=== PATIENT | female | born 1955 | race Caucasian/White ===

== ENCOUNTER 2018-08-17 17:48 | Emergency (ER) | payer SELFPAY ==
[2018-08-17 17:59] VITALS: BP 153/72
--- NOTE | 2018-08-17 18:57 | ED Physician Documentation ---
PD HPI LOWER EXT INJURY - Stated complaint Stated Complaint: LT ANKLE INJ - Chief complaint Chief Complaint: Trauma Ext - History obtained from History obtained from: Patient - History of Present Illness PD HPI LOW EXT INJURY LOCATION: Left (Trip and fall injuring her ankle at home just prior to arrival with a twisting motion. She was initially able to walk and bear weight but now is unable.) Review of Systems Constitutional: reports: Reviewed and negative Nose: reports: Reviewed and negative Throat: reports: Reviewed and negative PD PAST MEDICAL HISTORY - Allergies Allergies/Adverse Reactions: Allergies Allergy/AdvReac Type Severity Reaction Status Date / Time Penicillins Allergy Anaphylaxis Verified 08/17/18 17:56 PD ED PE NORMAL - Vitals Vital signs reviewed: Yes - General General: Alert and oriented X 3, No acute distress - Neck Neck: Supple, no meningeal sign, No bony TTP - Extremities Extremities: Other (Ecchymosis and tenderness over the lateral malleolus welling without medial malleolar or proximal fibular tenderness of the left ankle.) - Neuro Neuro: Alert and oriented X 3, Normal speech Results - Vitals Vitals: Vital Signs - 24 hr 08/17/18 17:54 Temperature 37.1 C Heart Rate 75 Respiratory 18 Rate Blood Pressure 153/72 H O2 Saturation 100 Oxygen O2 Source Room air - Rads (name of study) 3v L ankle Radiology: EMP read contemporaneously (STS no frx) Departure - Departure Disposition: 01 Home, Self Care Clinical Impression: Left ankle sprain Qualifiers: Encounter type: initial encounter Involved ligament of ankle: deltoid ligament Qualified Code(s): S93.422A - Sprain of deltoid ligament of left ankle, initial encounter Condition: Good Record reviewed to determine appropriate education?: Yes Instructions: ED Sprain Ankle W X Ray Comments: Recheck with your doctor in a week if not better, return for new worsening symptoms. You may walk and bear weight as tolerated. Tylenol as needed for pain. Elevate as much as possible.
--- NOTE | 2018-08-17 19:06 | XRAY Report ---
Reason: twisted ankle Procedure Date: 08/17/2018 Accession Number: [id number] / [id number] Procedure: XR - Ankle 3 View LT CPT Code: FULL RESULT: EXAM: LEFT ANKLE RADIOGRAPHY EXAM DATE: 08/17/2018 06:25 PM. CLINICAL HISTORY: Twisted ankle. COMPARISON: None. TECHNIQUE: 3 views. FINDINGS: Bones: No acute fracture. Previous surgery of the first metatarsal. There is a corticated ossification inferior to the medial malleolus which appears chronic. Joints: Joint space and alignment is preserved. Soft Tissues: There is lateral ankle soft tissue swelling. IMPRESSION: Soft tissue swelling without acute fracture. RADIA
== END 2018-08-17 19:28 | disposition home or self-care (01) ==
LOC: ED 17:48
DX: S93.422A Sprain of deltoid ligament of left ankle, initial encounter (principal); X50.1XXA Overexertion from prolonged static or awkward postures, initial encounter
CPT/HCPCS: 99282; 99283

== ENCOUNTER 2020-09-20 19:24 | Emergency (ER) | payer MEDICARE, OTHER ==
[2020-09-20] MEDS ORDERED: SODIUM CHLORIDE 0.9% 1,000 ML IV STA (19:45)
[2020-09-20] MEDS ORDERED: ONDANSETRON 4 MG/2 ML VIAL IVP STA (19:59)
--- OUTSIDE RECORDS SUMMARY | 2020-09-20 20:06 | EXTERNAL MEDICAL SUMMARY RPT | Continuity of Care Document ---
:1955 Demographics Phone Unavailable Preferred Language Unknown Marital Status Unknown Jainism Affiliation Unknown Race Unknown Ethnic Group Unknown Author Organization [facility] Address [address] [phone] Phone Allergies Encounters Medications Problems Results
--- NOTE | 2020-09-20 20:08 | ED Physician Documentation ---
History of Present Illness - Stated complaint Stated Complaint: CRAMPING/CHILLS - Chief complaint Chief Complaint: Abd Pain - Additonal information Additional information: 65-year-old female presents emergency department for evaluation of acute onset periumbilical pain with nausea associated chills and rigors. No vomiting no diarrhea. She was reports ported Darius feeling well until just a few hours ago. 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 She was seen at [facility] and underwent a thrombectomy. She was ultimately found to have an ASD which was repaired in September 2019. She takes a daily aspirin only at this time and has no other medications prescribed for her. She denies any history of hypertension or diabetes. She is not a smoker. She has never had a colonoscopy but screened negative for colon cancer using the stool test. Review of Systems Constitutional: reports: Chills, Myalgias. denies: Fever Eyes: reports: Reviewed and negative Ears: reports: Reviewed and negative Nose: reports: Reviewed and negative Throat: reports: Reviewed and negative Cardiac: reports: Reviewed and negative Respiratory: denies: Dyspnea, Cough GI: reports: Abdominal Pain, Nausea. denies: Vomiting, Constipation, Diarrhea, Hematemesis : denies: Dysuria, Frequency, Hesitancy, Hematuria Skin: denies: Rash, Lesions PD PAST MEDICAL HISTORY - Present Medications Home Medications: Ambulatory Orders Medication Instructions Recorded Confirmed Ondansetron Odt [Zofran] 4 mg TL Q6H PRN #10 tablet 09/20/20 - Allergies Allergies/Adverse Reactions: Allergies Allergy/AdvReac Type Severity Reaction Status Date / Time Penicillins Allergy Anaphylaxis Verified 08/17/18 17:56 Sulfa (Sulfonamide Allergy Rash Verified 09/20/20 19:34 Antibiotics) - Social History Does the pt smoke?: No Smoking Status: Never smoker Does the pt drink ETOH?: No Does the pt have substance abuse?: No - Immunizations Immunizations are current?: Yes - POLST Patient has POLST: No PD ED PE EXPANDED - General General: Alert, In Pain - Cardiac Cardiac: Regular Rate, Radial strong equal, Cap refill < 2 sec. No: Murmur Present - Respiratory Respiratory: Clear to ausultation diana. No: Distress, Labored - Abdomen Abdomen: Normal Bowel sounds, Tender to palpation, LUQ, Periumbilical (Generalized periumbilical and left lower quadrant tenderness to palpation without guarding or rebound. Nonperitoneal exam.), LLQ - Derm Derm: Normal color, Warm and dry. No: Rash - Neuro Neuro: Alert and Oriented X 3, CNII-XII intact, Normal gait, Normal finger nose, Normal speech - GCS Eye Opening: Spontaneous Motor: Obeys Commands Verbal: Oriented Total: 15 Results - Vitals Vitals: Vital Signs - 24 hr 09/20/20 09/20/20 09/20/20 19:29 19:33 21:33 Temperature 36.5 C 36.5 C 36.9 C Heart Rate 94 94 83 Respiratory 16 16 16 Rate Blood Pressure 123/63 123/63 140/80 H O2 Saturation 97 97 99 Oxygen O2 Source Room air - Labs Labs: Laboratory Tests 09/20/20 09/20/20 09/20/20 20:15 20:15 20:15 WBC 12.5 H RBC 4.68 Hgb 14.3 Hct 43.2 MCV 92.3 MCH 30.6 MCHC 33.1 RDW 13.4 Plt Count 291 MPV 10.2 Neut # (Auto) 10.7 H Lymph # (Auto) 1.2 L [place] # (Auto) 0.5 Eos # (Auto) 0.1 Baso # (Auto) 0.1 Absolute Nucleated RBC 0.00 Nucleated RBC % 0.0 Sodium 142 Potassium 3.6 Chloride 103 Carbon Dioxide 27 Anion Gap 12.0 BUN 20 Creatinine 0.8 Estimated GFR (MDRD) 72 L Glucose 129 H Lactic Acid 1.2 Calcium 9.8 Total Bilirubin 0.8 AST 30 ALT 24 Alkaline Phosphatase 63 Total Protein 7.3 Albumin 4.8 Globulin 2.5 Albumin/Globulin Ratio 1.9 Lipase 29 Urine Color Urine Clarity Urine pH Ur Specific Silt Urine Protein Urine Glucose (UA) Urine Ketones Urine Occult Blood Urine Nitrite Urine Bilirubin Urine Urobilinogen Ur Leukocyte Esterase Ur Microscopic Review Urine Culture Comments 09/20/20 22:05 WBC RBC Hgb Hct MCV MCH MCHC RDW Plt Count MPV Neut # (Auto) Lymph # (Auto) [place] # (Auto) Eos # (Auto) Baso # (Auto) Absolute Nucleated RBC Nucleated RBC % Sodium Potassium Chloride Carbon Dioxide Anion Gap BUN Creatinine Estimated GFR (MDRD) Glucose Lactic Acid Calcium Total Bilirubin AST ALT Alkaline Phosphatase Total Protein Albumin Globulin Albumin/Globulin Ratio Lipase Urine Color YELLOW Urine Clarity CLEAR Urine pH 6.0 Ur Specific Silt 1.010 Urine Protein NEGATIVE Urine Glucose (UA) NEGATIVE Urine Ketones 15 H Urine Occult Blood NEGATIVE Urine Nitrite NEGATIVE Urine Bilirubin NEGATIVE Urine Urobilinogen 0.2 (NORMAL) Ur Leukocyte Esterase NEGATIVE Ur Microscopic Review NOT INDICATED Urine Culture Comments NOT INDICATED - Rads (name of study) CT abd Radiology: Final report received (Bowel enhancement involving multiple small bowel loops in the lower abdomen and pelvis without evidence of obstruction. Findings may represent an infectious or inflammatory enteritis. Chronic diverticulosis without acute diverticulitis) PD MEDICAL DECISION MAKING - ED course Complexity details: reviewed results, re-evaluated patient, d/w patient, d/w family ED course: This is a very well-appearing 65-year-old female who presents to the emergency department for evaluation of acute onset periumbilical abdominal cramping with some nausea but no vomiting. No diarrhea or fevers. Screening labs show no significant worrisome abnormalities. Given her age we did proceed to do a CT of the abdomen and it does suggest a small bowel enteritis without findings of obstruction. The radiologist does suggest that with edema within the mesenteric the could be seen reactive changes secondary to pelvic inflammatory disease or peritonitis. However it should be noted that the patient's abdominal exam is not consistent with a peritonitis. These findings were discussed at length with the patient and her . I have recommended Zofran for nausea at home. She is currently tolerating sips of clear liquids and feels better after the IV fluids and Zofran here in [facility]. Recommend clear liquids for 24 hours then slowly advance the diet. Emergent return precautions were discussed for fevers, worsening pain, uncontrolled vomiting black or bloody stools. Departure - Departure Disposition: 01 Home, Self Care Clinical Impression: Abdominal pain Qualifiers: Abdominal location: left lower quadrant Qualified Code(s): R10.32 - Left lower quadrant pain Condition: Stable Record reviewed to determine appropriate education?: Yes Follow-Up: Marni Horner MD [Primary Care Provider] - Prescriptions: Ondansetron Odt [Zofran] 4 mg TL Q6H PRN #10 tablet PRN Reason: Nausea / Vomiting Comments: Nathalia you were seen in the emergency department today for sudden onset periumbilical and left-sided abdominal cramping. There were no fevers or vomiting. Your screening labs were essentially normal without any worrisome findings. The CT of your abdomen does suggest that you have an enteritis which is inflammation of the small bowel. We often see this in viral illness. The radiologist did suggest that there is a possibility your symptoms could be due to to pelvic inflammatory disease or peritonitis. However given your exam, history and laboratory findings I do not think that this is likely. I have prescribed some Zofran which is a nausea medicine. You may take it 2-3 times a day to help with nausea. I do recommend that you sip clear liquids for the next 24 hours. If abdominal cramping and nausea is improving you may slowly advance your diet with simple foods such as bananas, rice, applesauce and toast. Please give yourself 48 to 72 hours before resuming 2 activities such as golf or Pilates. If you are feeling better it is safe to travel this weekend. Reasons to return to the emergency department would include fevers, suddenly worse or different abdominal pain, uncontrolled vomiting, black or bloody stools
[2020-09-20] MEDS ORDERED: IOVERSOL 320 100 ML VIAL IVP ONE ×2 (20:13→21:11)
[2020-09-20 20:25] LABS: BASOPHILS # (AUTO) 0.1 10^3/uL (0.0-0.1); BASOPHILS % (AUTO) 0.4 %; EOSINOPHILS # (AUTO) 0.1 10^3/uL (0.0-0.7); EOSINOPHILS % (AUTO) 0.7 %; HCT - HEMATOCRIT 43.2 % (37.0-47.0); HGB - HEMOGLOBIN 14.3 g/dL (12.0-16.0); LYMPHOCYTES # (AUTO) 1.2 10^3/uL (1.5-3.5); LYMPHOCYTES % (AUTO) 9.5 %; MEAN CORPUSCULAR HEMOGLOBIN 30.6 pg (27.0-31.0); MEAN CORPUSCULAR HGB CONC 33.1 g/dL (32.0-36.0); MEAN CORPUSCULAR VOLUME 92.3 fL (81.0-99.0); MEAN PLATELET VOLUME 10.2 fL (7.9-10.8); MONOCYTES # (AUTO) 0.5 10^3/uL (0.0-1.0); MONOCYTES % (AUTO) 3.7 %; NEUTROPHILS # (AUTO) 10.7 10^3/uL (1.5-6.6); NEUTROPHILS % (AUTO) 85.4 %; PLT - PLATELET COUNT 291 10^3/uL (130-450); RED BLOOD COUNT 4.68 10^6/uL (4.20-5.40); RED CELL DISTRIBUTION WIDTH 13.4 % (12.0-15.0); WHITE BLOOD COUNT 12.5 x10^3/uL (4.8-10.8)
[2020-09-20 20:35] LABS: ALBUMIN 4.8 g/dL (3.2-5.5); ALBUMIN/GLOBULIN RATIO 1.9 (1.0-2.2); BILIRUBIN,TOTAL 0.8 mg/dL (0.2-1.0); CALCIUM 9.8 mg/dL (8.5-10.3); CREATININE 0.8 mg/dL (0.4-1.0); POTASSIUM 3.6 mmol/L (3.5-5.0); TOTAL PROTEIN 7.3 g/dL (6.7-8.2)
--- NOTE | 2020-09-20 21:39 | CT Report ---
PROCEDURE: Abdomen/Pelvis W INDICATIONS: RLQ Abdominal pain, appendicitis suspected CONTRAST: IV CONTRAST: Optiray 320 ml: 100 PO CONTRAST: *NO PO CONTRAST TECHNIQUE: After the administration of intravenous contrast, 5 mm thick sections acquired from the diaphragms to the symphysis. 5 mm thick coronal and sagittal reformats were acquired. For radiation dose reducti on, the following was used: automated exposure control, adjustment of mA and/or kV according to yael ent size. COMPARISON: None. FINDINGS: Image quality: Excellent. ABDOMEN: Lung bases: There is mild dependent atelectasis bilaterally. Heart size is normal. Solid organs: There is a small cyst in the inferior right hepatic lobe. Gallbladder appears within no rmal limits without calcified gallstones. Biliary system is non dilated. The spleen is normal in siz e. Pancreas enhances normally without peripancreatic fat stranding or fluid collections. No adrenal nodules. Kidneys demonstrate no hydronephrosis. There are 2 areas of renal cortical thinning in the left kidney likely representing sequelae of prior infection, trauma, or infarct. Peritoneum and bowel: The appendix is normal in appearance. There is a small amount of free fluid wi thin the pelvis with mild edema in the mesentery. There is mild bowel wall enhancement involving mult iple small bowel loops within the lower abdomen and pelvis. No associated bowel obstruction. The colo n demonstrates normal caliber and wall thickness. Colonic diverticulosis present without acute divert iculitis. Nodes and vessels: No retroperitoneal or mesenteric adenopathy by size criteria. Aorta and inferior vena cava are normal in size. Miscellaneous: No ventral hernias. PELVIS: Genitourinary: Bladder wall thickness is normal. The uterus is prominent in size with dilated enhanc ing left parametrial vessels. Miscellaneous: No inguinal hernias or adenopathy. Bones: No suspicious bony lesions. No vertebral body compression fractures. IMPRESSION: 1. No evidence of appendicitis. 2. Mild wall enhancement involving multiple small bowel loops in the lower abdomen and pelvis without evidence of bowel obstruction. The findings may represent an infectious or inflammatory enteritis. H owever, given the small amount of free fluid as well as edema in the mesenteric, the findings may als o reflect reactive changes secondary to a peritonitis of indeterminate etiology such as from pelvic i nflammatory disease. Recommend correlation clinically. 3. Colonic diverticulosis without acute diverticulitis. Reviewed by: Kenji Young MD on 09/20/2020 9:37 PM PDT Approved by: Kenji Young MD on 09/20/2020 9:37 PM PDT Station ID: [id number]
[2020-09-20 22:12] LABS: BILIRUBIN,URINE NEGATIVE (NEGATIVE); GLUCOSE, URINE (UA) NEGATIVE (NEGATIVE); KETONES,URINE (UA) 15 mg/dL (NEGATIVE); LEUKOCYTE ESTERASE, URINE NEGATIVE (NEGATIVE); NITRITE,URINE NEGATIVE (NEGATIVE); OCCULT BLOOD,URINE NEGATIVE (NEGATIVE); PROTEIN,URINE NEGATIVE (NEGATIVE); UROBILINOGEN,URINE 0.2 (NORMAL) E.U./dL (NORMAL)
[2020-09-20 22:13] LABS: CLARITY,URINE CLEAR (CLEAR)
[2020-09-20 22:42] VITALS: BP 138/80
== END 2020-09-20 22:41 | disposition home or self-care (01) ==
LOC: ED 19:24
DX: R10.33 Periumbilical pain (principal)
CPT/HCPCS: 36415; 74177; 80053; 81003; 83605; 83690; 85025; 96374; 99284; Q9967; 81001; 87086

== ENCOUNTER 2021-12-01 09:41 | Outpatient (CLI) | payer MEDICARE, OTHER ==
[2021-12-01] MEDS ORDERED: DIATR MEGLU/DIATRIZOATE SODIUM 120 ML BOTTLE PO ONE (15:42)
--- NOTE | 2021-12-01 17:42 | CT Report ---
PROCEDURE: Abdomen/Pelvis W INDICATIONS: ABD PAIN CONTRAST: IV CONTRAST: Optiray 320 ml: 10 PO CONTRAST: Optiray 320 ml50 TECHNIQUE: After the administration of weight appropriate dose of intravenous contrast, 5 mm thick sections acqu ired from the diaphragms to the symphysis. 5 mm thick coronal and sagittal reformats were acquired. For radiation dose reduction, the following was used: automated exposure control, adjustment of mA and/or kV according to patient size. COMPARISON: 09/20/2020 FINDINGS: Image quality: Excellent. ABDOMEN: Lung bases: Lung bases are clear. Heart size is normal. Solid organs: Liver and spleen are normal in size and enhancement. Stable small inferior right hepat ic lobe cyst. Gallbladder appears within normal limits without evidence for calcified gallstones. Bi liary system is non dilated. Pancreas enhances normally. No peripancreatic inflammation. No adrenal nodules. Kidneys demonstrate normal size and enhancement, without hydronephrosis. Bilateral ureter s are normal in course and caliber. Stable appearance of small areas of cortical thinning/irregularit y of the left kidney likely sequela of remote infection, trauma, or infarct. Peritoneum and bowel: Bowel loops demonstrate normal wall thickness and caliber. No free fluid or a ir. Scattered colonic diverticulosis. There is a segment of mild circumferential wall thickening and minimal surrounding inflammatory stranding involving the proximal and mid sigmoid colon. No evidence for perforation or abscess formation. Nodes and vessels: No retroperitoneal or mesenteric adenopathy by size criteria. Aorta and inferior vena cava are normal in size. Miscellaneous: No ventral hernias. PELVIS: Genitourinary: Bladder wall thickness is normal. Miscellaneous: No inguinal hernias or adenopathy. Bones: No suspicious bony lesions. No acute vertebral body compression fractures. IMPRESSION: Colonic diverticulosis with mild proximal and mid sigmoid colon acute diverticulitis. No evidence for perforation or abscess formation. Reviewed by: Karsten Saini MD on 12/01/2021 5:41 PM PDT Approved by: Karsten Saini MD on 12/01/2021 5:41 PM PDT Station ID: [id number]
== END 2021-12-01 09:42 | disposition home or self-care (01) ==
LOC: DI 09:41
PROVIDERS: ATTEND Physician Assistant Medical
DX: K57.32 Diverticulitis of large intestine without perforation or abscess without bleeding (principal); R19.4 Change in bowel habit
CPT/HCPCS: 74177; Q9963; Q9967